=== PATIENT | female | born 1940 ===

== ENCOUNTER 2018-09-03 07:15 | Inpatient (IN) | payer OTHER ==
[~2018-09-03] VITALS: Ht 157.5 cm; Wt 77.1 kg
[2018-09-03] MEDS ORDERED: ZOCOR40 MG PO (10:40)
[2018-09-03] MEDS ORDERED: GABAPENTIN800 MG PO (10:40)
[2018-09-03] MEDS ORDERED: ASA81 MG PO (10:41)
[2018-09-03] MEDS ORDERED: SYNTHROID88 MCG PO (10:41)
[2018-09-03] MEDS ORDERED: BISOPROLOL FUMAR5 MG PO (10:41)
[2018-09-03] MEDS ORDERED: CALTRATE 600 +1 EACH PO (10:41)
[2018-09-03] MEDS ORDERED: LOSARTAN-HCTZ1 EAC1 PO (10:41)
[2018-09-03] MEDS ORDERED: ONE-A-DAY ESSE1 EACH PO (10:42)
[2018-09-07] MEDS ORDERED: GABAPENTIN300 MG PO (14:22)
[2018-09-11] MEDS ORDERED: BACTRIM DS TAB1 EACH PO (07:59)
[2018-09-11] MEDS ORDERED: INTEGRA PLUS C1 EACH PO (07:59)
[2018-09-11] MEDS ORDERED: XARELTO10 MG PO (08:00)
[2018-09-11] MEDS ORDERED: OXYC1TAB9 PO (08:00)
== END 2018-09-11 11:53 | disposition home or self-care (01) | DRG 470 ==
LOC: SURH 07:15 → O/R 09-07 10:29 → SURG 09-07 10:29 → SURH 09-07 15:00 → SURG 09-07 23:45
PROVIDERS: ADMIT Orthopaedic Surgery Sports Medicine
PROC: 0SRD0J9 Replacement of Left Knee Joint with Synthetic Substitute, Cemented, Open Approach (ICD-10-PCS; principal; 2018-09-07 15:00)
DX: M17.12 Unilateral primary osteoarthritis, left knee (principal); D62 Acute posthemorrhagic anemia; E78.00 Pure hypercholesterolemia, unspecified; I10 Essential (primary) hypertension; E03.8 Other specified hypothyroidism

== ENCOUNTER 2018-09-24 08:43 | Emergency (ER) | payer OTHER ==
[~2018-09-24] VITALS: Ht 157.5 cm; Wt 77.1 kg
[~2018-09-24 08:43] MED LIST: ASA81 MG PO; BACTRIM DS TAB1 EACH PO; BISOPROLOL FUMAR5 MG PO; CALTRATE 600 +1 EACH PO; GABAPENTIN300 MG PO; GABAPENTIN800 MG PO; INTEGRA PLUS C1 EACH PO; LOSARTAN-HCTZ1 EAC1 PO; ONE-A-DAY ESSE1 EACH PO; OXYC1TAB9 PO; SYNTHROID88 MCG PO; XARELTO10 MG PO; ZOCOR40 MG PO
== END 2018-09-24 16:35 | disposition home or self-care (01) ==
LOC: ER 08:43
DX: K52.89 Other specified noninfective gastroenteritis and colitis (principal)